=== PATIENT | male | born 1945 | race Caucasian/White ===

== ENCOUNTER 2017-11-24 18:04 | Emergency (ER) | payer BC, OTHER ==
[~2017-11-24] VITALS: Ht 177.8 cm; Wt 81.6 kg
[2017-11-24 18:08] VITALS: BP 121/26
[2017-11-24] MEDS ORDERED: SODIUM BICARBONATE 8.4% INJ 50ML SYRINGE IV ONE (18:11)
[2017-11-24] MEDS ORDERED: EPINEPHrine HCL 1 MG/10 ML SYRG IV ONE (18:11)
[2017-11-24] MEDS ORDERED: CALCIUM CHLOR(10%) 100MG/ML 10ML SYRINGE IV ONE (18:11)
[2017-11-24] MEDS ORDERED: SODIUM BICARBONATE 8.4% INJ 50ML SYRINGE ONE (18:16)
== END 2017-11-24 18:46 | disposition expired ==
LOC: EDBD 18:04 → ER 18:10
DX: I46.9 Cardiac arrest, cause unspecified (principal); E78.5 Hyperlipidemia, unspecified; I10 Essential (primary) hypertension; I25.10 Atherosclerotic heart disease of native coronary artery without angina pectoris; Z85.038 Personal history of other malignant neoplasm of large intestine; Z85.46 Personal history of malignant neoplasm of prostate; Z88.0 Allergy status to penicillin; Z98.61 Coronary angioplasty status
CPT/HCPCS: 92950; 99285; J0171